=== PATIENT | male | born 1975 | race Caucasian/White ===

== ENCOUNTER 2019-02-28 09:06 | Outpatient (CLI) | payer OTHER ==
--- NOTE | 2019-02-28 09:48 | RAD ---
EXAM: 4 views of the right elbow HISTORY: Elbow pain COMPARISON: None FINDINGS: No elbow effusion is seen. There is no evidence of acute fracture or dislocation. No signi ficant degenerative changes are seen. Moderate posterior soft tissue swelling is present. There is a small radiopaque foreign body incidentally seen in the volar forearm. IMPRESSION: Soft tissue swelling without evidence of acute osseous abnormality.
== END 2019-02-28 09:07 | disposition home or self-care (01) ==
LOC: SCSRAD 09:06
PROVIDERS: ATTEND Nurse Practitioner Family
DX: M25.521 Pain in right elbow (principal); M79.89 Other specified soft tissue disorders